=== PATIENT | male | born 1975 | race Caucasian/White ===

== ENCOUNTER 2021-07-02 15:51 | Emergency (ER) | payer OTHER, SELFPAY ==
--- NOTE | ~2021-07-02 | XR_ITS ---
EXAMINATION: XR forearm LT 2V EXAM DATE: 07/02/2021 16:44 INDICATION: fall, arm deformity. best obtainable. no movement. TECHNIQUE: Left forearm frontal projection obtained and reviewed (one image available). There is no prior study for comparison. FINDINGS: Acute closed posttraumatic comminuted fracture of the left radial distal metaphysis with d isplacement which would be better evaluated if a lateral projections were available. Multiple fractur e lines extending into the radiocarpal joint. There is overlying soft tissue swelling. IMPRESSION: Acute comminuted left distal radial metaphyseal intra-articular fracture. Reviewed, dictated and finalized at location B. 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
--- NOTE | ~2021-07-02 | CT_ITS ---
EXAMINATION: CT chest abdomen pelvis w con DATE: 07/02/2021 17:53 [employer]OP[employer] INDICATION: Status post fall from roof. Back pain. TECHNIQUE: Computed tomography (CT) of the chest, abdomen, and pelvis was performed with 100 cc Omnip aque 350 intravenous contrast. The dose-length product was 1448.07 mGy-cm. Automated exposure control and iterative reconstruction technique were employed. COMPARISON: None FINDINGS: CHEST CT: There are a few calcified granulomas in the lung parenchyma. There are a few scattered 2-3 mm nodules in the upper lobes. There is a 6 mm right upper lobe nodule, image 40, not clearly calcified. No end obronchial lesions. There is dependent atelectasis. No pneumothorax. Mild mediastinal lymphadenopathy , likely reactive No significant pleural or pericardial effusion. Heart size is normal. ABDOMEN/PELVIS CT: There are small low-density lesions throughout the liver, most likely benign cysts. The spleen, pancr eas, adrenal glands and kidneys are unremarkable. Gallbladder is present. No retroperitoneal lymphade nopathy. Normal appendix. Mild bladder wall thickening which may be due to underdistention or cystiti s. No free air or free fluid. There is an acute superior endplate compression fracture of L2 with richie roximately 15% loss of vertebral body height anteriorly. There is mild osteoarthritis of the hips. No acute pelvic fracture. IMPRESSION: 1. Acute superior endplate compression fracture of L2 with approximately 50% loss of vertebral body h eight. 2: Bilateral pulmonary nodules, largest noncalcified nodule measuring 6 mm in the right upper lobe, l ikely benign. Follow-up CT chest in 6 months recommended. 3: Mild mediastinal lymphadenopathy, likely reactive. 4: Mild bladder wall thickening which may relate to underdistention or cystitis. Reviewed, dictated and finalized at location A. [employer]EL[employer] IMPRESSION: 1. Acute superior endplate compression fracture of L2 with approximately 50% lo ss of vertebral body height. 2: Bilateral pulmonary nodules, largest noncalcified nodule measuring 6 mm in t he right upper lobe, likely benign. Follow-up CT chest in 6 months recommended. 3: Mild mediastinal lymphadenopathy, likely reactive. 4: Mild bladder wall thickening which may relate to underdistention or cystitis .
[2021-07-02 16:10] VITALS: BP 165/107; PULSE 60; RESP 16; TEMP 36.4; O2SAT 98
--- NOTE | 2021-07-02 16:18 | ED.FALL ---
HPI - Fall General Chief Complaint: Extremity Injury, Upper Stated Complaint: arm injury Time Seen by Provider: 07/02/21 16:18 Source: patient and family Mode of arrival: ambulatory Limitations: no limitations History of Present Illness HPI Narrative: 45-year-old man comes in today complaining of left wrist pain and deformity as well as low back pain after he fell 13 ft from a roof just prior to coming to the ER. He was on a metal roof and it started raining and he slipped. Patient states he did not strike his head and denies neck pain, loss consciousness, vomiting, numbness, weakness, chest or abdominal pain, or pelvic pain. complaint: fall Onset (ago): minute(s) (20) Fall from: from height (distance) ( 13 ft) Place fall occurred: work Loss of consciousness: none Length of LOC: second(s) Prolonged down time: no Symptoms prior to fall: none Context: tripped/slipped Location of injury: back Location of injury - extremities: Left: forearm Severity: severe Quality: sharp and aching Related Data Home Medications Medication Instructions Recorded Confirmed No Home Medications 07/02/21 07/02/21 Allergies Allergy/AdvReac Type Severity Reaction Status Date / Time No Known Allergies Allergy Verified 07/02/21 17:39 Review of Systems Review of Systems: All systems reviewed & are unremarkable except as noted in HPI and below Constitutional: Constitutional: Denies chills and Denies fever(s) Eyes: Eyes: Denies change in vision ENT: Denies nasal congestion and Denies sore throat Cardiovascular: Cardiovascular: Denies chest pain and Denies radiating jaw, neck or arm pain Respiratory: Respiratory: Denies chest congestion, Denies cough and Denies dyspnea Gastrointestinal: Gastrointestinal: Denies abdominal pain, Denies nausea and Denies vomiting Genitourinary: Genitourinary: Denies hematuria Musculoskeletal: Musculoskeletal: Reports as per HPI, Reports back pain and Reports arthralgias Integumentary/Breasts: Skin/Breast: Denies pruritus, Denies erythema and Denies rash Neurologic: Denies vertigo, Denies dizziness, Denies syncope, Denies numbness and Denies weakness Allergic/Immunologic: Allergic/Immunologic: Denies lip swelling and Denies throat swelling [facility] Surgical History Surgical History (Updated 07/02/21 @ 17:45 by Lucas Can MD) History of tonsillectomy Social History Social History (Updated 07/02/21 @ 17:46 by Lucas Can MD) Smoking status: Never smoker Substance use: never Living arrangements: with family Exam Const: General: healthy appearing and alert Orientation/consciousness: patient oriented x3 Limitations: no limitations Other: moderate to severe acute distress. HENMT: Head: normal to inspection Ears: external ears normal and EAC's normal General nose exam: Normal nares present Mouth: Yes moist mucous membranes Throat: posterior oropharynx normal Eyes: Conjunctivae: conjunctivae normal Pupils: Equal, round and reactive pupils present EOM: EOMs intact bilaterally Resp: Effort & Inspection: normal respiratory effort and not labored Auscultation: clear to auscultation bilaterally, no rales, no rhonchi and no wheezes Cardio: Rate: regular rate Rhythm: regular rhythm Heart sounds: no murmurs GI: GI Palp: Yes Soft to palpation, No Tenderness to palpation present (GI) and No Guarding due to palpation present (GI) Back/Spine/Pelvis: Other: Tenderness at the lumbar spine midline. There is no contusions, swelling, abnormal contour, or step-off. Skin: General skin exam: normal color, no jaundice and no pallor Rashes: no rashes Neuro: General: patient oriented x3, moves all extremities, no focal motor deficits and CN's II-XI intact bilaterally Speech: normal speech Gait exam (Neuro): Normal gait present Other: Distal neurovascular exam is intact in the lower extremities and left upper extremity Extrem: Other: Deformed left wrist with an abrasion o
[2021-07-02] MEDS: HYDROmorphone HCL INJ (*CRX) 2 MG/ML VIAL 0.5 MG IV PUSH ×4 (16:32→19:25)
[2021-07-02] MEDS: ONDANSETRON INJ 4 MG/2 ML VIAL IV PUSH (16:33)
[2021-07-02 16:37] LABS: Basophils Absolute Auto 0.03 K/mm3 (0.00-0.10); Basophils Percent Auto 0.2 % (0.0-1.0); Eosinophils Absolute Auto 0.06 K/mm3 (0.02-0.50); Eosinophils Percent Auto 0.4 % (1.0-6.0); Hemoglobin 14.4 g/dL (14.0-18.0); Immature Granulocyte Absolute 0.16 K/mm3 (0.00-0.00); Immature Granulocyte Percent A 1.2 % (0.0-0.0); Lymphocytes Percent Auto 24.2 % (18.0-42.0); Mean Corpuscular HGB Conc 34.3 g/dL (32.0-36.0); Mean Corpuscular Hemoglobin 29.8 pg (27.0-31.0); Mean Platelet Volume 9.5 fl (8.7-11.0); Monocytes Absolute Auto 1.05 K/mm3 (0.10-0.90); Monocytes Percent Auto 7.7 % (2.0-11.0); Neutrophils Percent Auto 66.3 % (50.0-70.0); Platelet Count Result 317 K/mm3 (150-420); Red Blood Count 4.83 M/mm3 (4.70-6.10); Red Cell Distribution Width 12.9 % (11.6-14.4); White Blood Count 13.6 K/mm3 (4.8-10.8)
[2021-07-02] MEDS: SODIUM CHLORIDE 0.9% IV 1,000 ML 999 ML IV CONT (16:55)
[2021-07-02 16:59] LABS: Alanine Aminotransferase 32 U/L (16-63); Albumin Level 3.4 g/dL (3.4-5.0); Alkaline Phosphatase 92 U/L (46-116); Anion Gap 16 mmol/L (8-16); Aspartate Amino Transferase 42 U/L (15-37); Bilirubin,Total 0.6 mg/dL (0.00-1.00); Blood Urea Nitrogen 25 mg/dL (7-18); Calcium 8.5 mg/dL (8.5-10.1); Carbon Dioxide 22 mmol/L (21-32); Chloride 102 mmol/L (98-108); Creatine Kinase 866 U/L (39-308); Estimated Glomerular Filt Rate 50; Glucose 164 mg/dL (70-99); Lipase 222 U/L (73-393); Osmolality Calculated 298 mOsm/kg (285-295); Potassium 3.4 mmol/L (3.5-5.1); Sodium 140 mmol/L (136-145); Total Protein 7.2 g/dL (6.4-8.2)
[2021-07-02 17:22] VITALS: BP 178/102; PULSE 74; RESP 16; O2SAT 97
[2021-07-02 18:00] LABS: Appearance Urine Clear (Clear); Bilirubin Urine Negative (Negative); Color Urine Yellow (Yellow); Glucose Urine UA Negative (Negative); Ketones Urine Trace (Negative); Leukocyte Esterase Ur Negative (Negative); Nitrate Urine Negative (Negative); Protein Urine 1+ (Negative); Specific Grav Ur >= 1.030 (1.010-1.020); Urobilinogen Urine 0.2 mg/dL (0.2-1.0)
--- NOTE | 2021-07-02 18:05 | PC.NURSE ---
RN swabbed pt for COVID rapid test and taken to lab at 1602.
[2021-07-02 18:20] VITALS: BP 166/100; PULSE 80; RESP 18; TEMP 36.7; O2SAT 96
[2021-07-02 18:40] LABS: SARS-CoV-2 Ag Negative (Negative)
[2021-07-02 18:41] LABS: Add Urine Microscopic? YES; Bacteria Urine Trace /hpf; Blood Urine Trace-Intact (Negative); Mucus Urine Moderate /lpf; RBC Urine 0-2 /hpf (0-2); Squamous Epithelial Cell Urine Rare /hpf (Few)
--- NOTE | 2021-07-02 18:45 | PC.NURSE ---
Pt informed RN that he was having increased numbness and decreased movement in his left middle and ring fingers.
[2021-07-02 19:00] VITALS: BP 158/95; PULSE 77; RESP 18; O2SAT 94
[2021-07-02 19:30] VITALS: BP 158/95; PULSE 78; RESP 18; TEMP 36.7; O2SAT 94
== END 2021-07-02 19:45 | disposition short-term general hospital (02) ==
PROVIDERS: Emergency Provider Emergency Medicine
DX: S52.502A Unspecified fracture of the lower end of left radius, initial encounter for closed fracture (principal); S32.020A Wedge compression fracture of second lumbar vertebra, initial encounter for closed fracture; W13.2XXA Fall from, out of or through roof, initial encounter; Z20.822 Contact with and (suspected) exposure to COVID-19
CPT/HCPCS: 29125; 36415; 71260; 73090; 74177; 80053; 81001; 82550; 83690; 85025; 87426; 96361; 96365; 96375; 96376; 99285; C9803; J0690; J1170; J2405; J7030; Q9967

== ENCOUNTER 2021-09-09 14:03 | Outpatient (RCR) | payer MEDICAID, OTHER, SELFPAY ==
--- NOTE | 2021-09-09 15:11 | OTOPEVAL ---
Thank you for referring River Islas to [facility].? The patient is scheduled to be seen for therapy? ____x/week for ___ weeks. Please review, sign, date and return this plan of care CAYLA. I agree with and certify that the following plan of care is medically necessary. Referring Physician Date Admitting Provider: Attending Provider: MIKE RODRIGUEZ Referring Provider: RenzoOT Outpatient Evaluation Start: 09/09/21 10:23 Freq: Status: Active Protocol: Document 09/09/21 14:04 [facility] [place]Rec: 09/09/21 15:11 [facility] [id number] Therapy Assessment Status Assessment Status Assessment Status Evaluation Evaluation Information Problem Diagnosis decreased L wrist ROM Onset 07/02/21 Cause L fracture of distal radius Subjective Information Patient was seen by his doctor Query Text:As Reported By Patient/ last Thursday and gave him a 10 Family # weight limit and recommended therapy for ROM of his L wrist. Patient reports that he fell off of a roof on and had surgery on 07/17/21 . 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 Patient reports that he is right hand dominant but does do a lot of things with his left hand as well. Patient is unable to use his L hand to grasp things and operate knobs, specifically pushing down on a soap bottle, opening a soda can, and carrying items. QuickDASH: 54.5% Prior Level of Function Activity Level (Last 3 Months) Occupation construction Hand Dominance Right Activity of Daily Living Ability Independent Indoor/Home Mobility Independent Community Mobility Independent Stairs Ability Independent Functional Cognition (Planning, Shopping Independent , Taking Medications) Cooking Yes Cleaning Yes Laundry Yes Shopping Yes Driving Yes Pain Asses
--- NOTE | 2021-10-07 09:05 | OTOPEVAL ---
Thank you for referring River Islas to [facility].? The patient is scheduled to be seen for therapy? ____x/week for ___ weeks. Please review, sign, date and return this plan of care CAYLA. I agree with and certify that the following plan of care is medically necessary. Referring Physician Date Admitting Provider: Attending Provider: MIKE RODRIGUEZ Referring Provider: RenzoOT Outpatient Evaluation Start: 09/09/21 10:23 Freq: Status: Active Protocol: Document 10/07/21 08:00 [facility] [place] (Rec: 10/07/21 09:04 [facility] [place] [id number]) Therapy Assessment Status Assessment Status Assessment Status Discharge Evaluation Information Problem Subjective Information Patient reports that he is Query Text:As Reported By Patient/ able to use his L hand to do Family anything he needs to and is back to working. 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 Patient does state that his lower back has been bothering him. Pain Assessment Timing of Pain Assessment Timing of Pain Assessment Re-assessment Self Report Self Report Pain Level 0 Pain Score Pain Score 0: Self Report Upper Extremity Range of Motion Elbow/Forearm Range of Motion Left Forearm Supination - Active 35 Wrist Range of Motion Left Wrist Flexion - Active 50 Wrist Extension - Active 28 Wrist Radial Deviation - Active 15 Wrist Ulnar Deviation - Active 15 Upper Extremity Muscle Strength Testing Wrist Strength Left Wrist Flexion Strength 5 Normal Wrist Extension Strength 5 Normal Hand Sheriff Officer/Pinch Strength Assessment Hand Left Sheriff Officer Strength (lbs) 40 Extremity Circumference Assessment Circumference Assessment Circumference Comments L wrist: 20.5 cm General Exercise General Exercises Side Left Exercise Description wrist maze x 3 min Query Text:Record Sets, Reps, 4# resisting L wrist flex/ext Resistance, and Position and rad/ulnar deviation, 25 reps x 2 sets weighted bar resisting L supination/pronation, 25 reps x 2 sets hand gripper at 4th position, 25 reps x 2 sets green therabar resisting research scholar with supination, research scholar with pronation, research scholar with wrist extension and research scholar with flexion, 25 resp x 2 sets each Manual Therapy Manual Therapy
== END 2021-10-07 09:33 | disposition home or self-care (01) ==
LOC: CHSOT 14:03
DX: S52.572D Other intraarticular fracture of lower end of left radius, subsequent encounter for closed fracture with routine healing (principal)
CPT/HCPCS: 97110; 97140; 97165

== ENCOUNTER 2021-10-08 08:01 | Outpatient (RCR) | payer OTHER, SELFPAY ==
--- NOTE | 2021-10-08 08:55 | PTOPEVAL ---
Thank you for referring River Islas to [facility].? The patient is scheduled to be seen for therapy? __2__x/week for 10 visits. Please review, sign, date and return this plan of care CAYLA. I agree with and certify that the following plan of care is medically necessary. Referring Physician Date Admitting Provider: Attending Provider: ALISON BOO Referring Provider: *PT Outpatient Evaluation Start: 10/08/21 08:04 Freq: Status: Active Protocol: Document 10/08/21 08:05 [facility] (Rec: 10/08/21 08:53 [facility] [id number]) Therapy Assessment Status Assessment Status Assessment Status Evaluation Evaluation Information Problem Diagnosis L2 compression fx, back pain Onset 07/02/21 Subjective Information Pt. reports that he fell off a Query Text:As Reported By Patient/ roof on 07/02/21. He report Family that he slipped on water. He states that his current pain is located on the right side. He notices pain when he is on his feet and lifting. He reports that he can be pain free with rest. He reports that he sleeps about 3 hours at night before pain can start and he has to get out of bed. He reports that he has been working, but is doing more small work and avoiding any heavy lifting. He reports that his goal is to reduce his back pain. Prior Level of Function Comments Additional Prior Level of Function Prior to the fall pt. 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 Pain Assessment Timing of Pain Assessment Timing of Pain Assessment Pre-Treatment Pain Scale Pain Scale Used Numeric (1 - 10) Self Report Pain Assessment Right Lower Back Reported Pain Level 2 Pain Description Aching Pain Frequency Intermittent Lowest Pain Intensity 0 Greatest Pain Intensity 6 Pain Score Pain Score 2: Self Report Interventions Used Interventions Used By Clinicians Activity or ADL's,Exercise Cervical and Lumbar ROM Lumbar ROM Lumbar Flexion Active Mid Chiang Query Text:Hands to: Lumbar Extension (0-40) 20 Query Text:Active in Degrees Lumbar Lateral Flexion Right (0-40) 30 Query Text:Active in Degrees
== END 2021-11-08 14:56 | disposition home or self-care (01) ==
LOC: CHSPT 08:01
DX: S32.020D Wedge compression fracture of second lumbar vertebra, subsequent encounter for fracture with routine healing (principal)
CPT/HCPCS: 97014; 97110; 97140; 97161; G0283

== ENCOUNTER 2021-12-05 07:33 | Outpatient (RCR) | payer OTHER, SELFPAY ==
[2021-12-05 07:05] VITALS: BP_SYST 90
--- NOTE | 2021-12-05 08:21 | PTOPEVAL ---
Thank you for referring River Islas to [facility].? The patient is scheduled to be seen for therapy? ____x/week for ___ weeks. Please review, sign, date and return this plan of care CAYLA. I agree with and certify that the following plan of care is medically necessary. Referring Physician Date Admitting Provider: Attending Provider: CIPRIANO LEACH Referring Provider: *PT Outpatient Evaluation Start: 12/05/21 07:02 Freq: Status: Active Protocol: Document 12/05/21 07:05 [facility] (Rec: 12/05/21 08:16 [facility] [id number]) Therapy Assessment Status Assessment Status Assessment Status Evaluation Evaluation Information Problem Diagnosis L shoulder pain, s/p distal radius fracture w/ ORIF Onset 12/02/21 Additional Evaluation Detail quick dash = 38% functionally declined Subjective Information patient reports he injured his Query Text:As Reported By Patient/ L wrist back in june of last year when he fell off a roof. he reports he had an ORIF surgery on the L wrist and had several visits of OT for the wrist following surgery. he reports he also had issues with the lower back after the fall (received PT for this), and he is now having L shoulder issues that he attributes to not using since his fall. 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 however, he reports the pain is more intense and more frequent since his fall injury . he reports he is getting a bit better from being back to work. he reports in combination with his new bouts of shoulder pain, he has L wrist tightness again as well. he reports he feels the shoulder is weak and tight. he reports he has a smaller mm in the L arm compared to the R arm. he reports increased pain in the L wist and shoulder with lifting arm/
== END 2021-12-26 08:13 | disposition home or self-care (01) ==
LOC: CHSPT 07:33
PROVIDERS: PCP Family Medicine
DX: S52.572D Other intraarticular fracture of lower end of left radius, subsequent encounter for closed fracture with routine healing (principal)
CPT/HCPCS: 97014; 97110; 97161; G0283

== ENCOUNTER 2023-08-10 22:25 | Emergency (ER) | payer OTHER, SELFPAY ==
[2023-08-10] VITALS (7 sets, daily range): BP systolic 113–141; BP diastolic 77–98; PULSE 64–81; RESP 13–20; TEMP 36.8; O2SAT 94–98
--- NOTE | ~2023-08-10 | XR_ITS ---
EXAMINATION: XR chest 2V DATE: 08/10/2023 22:51 INDICATION: Left chest pain. TECHNIQUE: Frontal and lateral views of the chest were obtained. COMPARISON: Chest CT 07/02/2021 FINDINGS: Calcified pulmonary nodules are consistent with old granulomatous disease. No pleural effus ion or pneumothorax. The heart size is normal. IMPRESSION: 1. No acute cardiopulmonary disease. Reviewed, dictated and finalized at location E. 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
--- NOTE | 2023-08-10 22:28 | ECG_ITS ---
Measurements Intervals Downs Rate: 68 P: 71 IN: 161 QRS: 43 QRSD: 94 T: 74 QT: 387 QTc: 413 Interpretive Statements SINUS RHYTHM POSSIBLE LEFT ATRIAL ENLARGEMENT INCOMPLETE RIGHT BUNDLE BRANCH BLOCK BORDERLINE ST-T WAVE ABNORMALITY- ANTEROLAT/HIGH LAT LEADS BORDERLINE ECG NO PREVIOUS ECG AVAILABLE FOR COMPARISON Electronically Signed On 08-11-2023 6:57:05 [employer]TL APPLICATION DEVELOPER by Horace Edwards D.O.
[2023-08-10] MEDS: ASPIRIN 81 MG CHEWABLE TABLET 324 MG PO (22:39)
[2023-08-10] MEDS: NITROGLYCERIN SL 0.4 MG TABLET SUBLINGUAL ×2 (22:40→23:15)
--- NOTE | 2023-08-10 22:40 | ED.CHESTPAIN ---
HPI - Chest Pain General Chief Complaint: Chest Pain Stated Complaint: chest pain Time Seen by Provider: 08/10/23 22:27 Source: patient Mode of arrival: ambulatory Limitations: no limitations History of Present Illness HPI narrative: 47 year old male presents to the Emergency Department complaining of substernal chest pain. Onset 4 days ago. Pain intermittent. Denies radiation. States has some right arm numbness and headache which come intermittently. States he saw doctor in 2012 and was given some bad new [COPD, lung tumor, some blockage in neck vessel], so I never went back. States I don't go see doctors because all they do is give you bad news. Family positive for CVD. Smoker. MD complaint: chest pain Onset (ago): day(s) (4) Timing of current episode: episodic Pain location: substernal Pain radiation: none Quality: sharp (stabbing) Relieving factors: nothing Exacerbating factors: nothing Treatment prior to arrival: none Risk Factors Coronary artery disease risk factors: smoking history and family history of CAD before age 50 Related Data Home Medications Medication Instructions Recorded Confirmed No Home Medications 07/02/21 08/10/23 Allergies Allergy/AdvReac Type Severity Reaction Status Date / Time No Known Allergies Allergy Verified 07/02/21 17:39 Review of Systems Review of Systems: All systems reviewed & are unremarkable except as noted in HPI and below Constitutional: Constitutional: Reports as per HPI, Denies chills and Denies fever(s) Eyes: Eyes: Reports as per HPI ENT: Reports system reviewed and no additional complaints, except as documented Cardiovascular: Cardiovascular: Reports as per HPI and Reports chest pain Respiratory: Respiratory: Reports as per HPI and Reports dyspnea Gastrointestinal: Gastrointestinal: Reports as per HPI, Denies diarrhea, Denies nausea and Denies vomiting Musculoskeletal: Musculoskeletal: Reports no additional musculoskeletal complaints Integumentary/Breasts: Skin/Breast: Reports system reviewed and no additional complaints, except as docu Neurologic: Reports headache(s) and Reports numbness (right arm) [facility] Surgical History Surgical History History of tonsillectomy Social History Social History Smoking status: Never smoker Substance use: never Living arrangements: with family Exam Const: General: healthy appearing and no acute distress Nutritional Appearance: well nourished Orientation/consciousness: patient oriented x3 Limitations: no limitations HENMT: Head: normal to inspection Ears: external ears normal Face/Nose/Sinus: Normal external nose present Face and sinus: normal facial exam Mouth: Yes Normal oral and palatal mucosa present Eyes: Conjunctivae: conjunctivae normal Pupils: Equal, round and reactive pupils present EOM: EOMs intact bilaterally Direct Ophthalmoscopy: no photophobia Neck: Neck: normal visual inspection Chest: Chest palpation & inspection: normal inspection of the chest and no tenderness Resp: Effort & Inspection: normal respiratory effort Auscultation: clear to auscultation bilaterally Cardio: Rate: regular rate Rhythm: regular rhythm Heart sounds: no murmurs GI: Inspection: non-distended GI Palp: Yes Soft to palpation and No Tenderness to palpation present (GI) Auscultation: normal bowel sounds Back/Spine/Pelvis: Back: no CVA tenderness Skin: General skin exam: normal color Rashes: no rashes Wounds: no wounds Neuro: General: patient oriented x3 and moves all extremities Cranial nerves: Yes Nystagmus not present Speech: normal speech Gait exam (Neuro): Normal gait present Other: grossly intact Extrem: General: normal to inspection and no edema Psych: Mental Status: mental status grossly normal Affect: normal affect Course Course Emergency Course: 47 y/o male pres
[2023-08-10 22:49] LABS: Basophils Absolute Auto 0.02 K/mm3 (0.00-0.10); Basophils Percent Auto 0.2 % (0.0-1.0); Hematocrit 45.5 % (40.0-54.0); Hemoglobin 15.2 g/dL (14.0-18.0); Immature Granulocyte Absolute 0.03 K/mm3 (0.00-0.00); Immature Granulocyte Percent A 0.3 % (0.0-0.0); Lymphocytes Absolute Auto 3.35 K/mm3 (1.10-4.50); Lymphocytes Percent Auto 32.7 % (18.0-42.0); Mean Corpuscular HGB Conc 33.4 g/dL (32.0-36.0); Mean Corpuscular Volume 89.9 fL (78.0-102.0); Mean Platelet Volume 9.4 fl (8.7-11.0); Monocytes Absolute Auto 0.83 K/mm3 (0.10-0.90); Monocytes Percent Auto 8.1 % (2.0-11.0); Neutrophils Absolute Auto 5.8 K/mm3 (1.7-7.2); Neutrophils Percent Auto 56.7 % (50.0-70.0); Platelet Count Result 271 K/mm3 (150-420); Red Blood Count 5.06 M/mm3 (4.70-6.10); Red Cell Distribution Width 13.3 % (11.6-14.4); White Blood Count 10.3 K/mm3 (4.8-10.8)
[2023-08-10 23:00] LABS: D Dimer 0.35 mg/L (0.19-0.50)
[2023-08-10 23:07] LABS: Alanine Aminotransferase 29 U/L (16-63); Alkaline Phosphatase 75 U/L (46-116); Anion Gap 7 mmol/L (8-16); Aspartate Amino Transferase 21 U/L (15-37); Bilirubin,Total 0.4 mg/dL (0.00-1.00); Blood Urea Nitrogen 22 mg/dL (7-18); Calcium 8.3 mg/dL (8.5-10.1); Carbon Dioxide 29 mmol/L (21-32); Chloride 103 mmol/L (98-108); Estimated CRCL calculation 79 ml/min; Estimated Glomerular Filt Rate > 60; Glucose 138 mg/dL (70-99); Osmolality Calculated 293 mOsm/kg (285-295); Potassium 3.9 mmol/L (3.5-5.1); Sodium 139 mmol/L (136-145); Total Protein 7.3 g/dL (6.4-8.2)
[2023-08-10 23:09] LABS: Troponin I 634.3 ng/L (0.00-60.4)
[2023-08-10] MEDS: MORPHINE SULFATE (*CRX) 4 MG/ML INJ IV PUSH (23:33)
[2023-08-10] MEDS: HEPARIN SODIUM 5,000 UNITS/ML VIAL 6000 UNITS IV PUSH (23:42)
[2023-08-10 23:44] LABS: INR 0.9; Partial Thromboplastin Time 26.5 SEC (23.90-30.70); Prothrombin Time 9.9 Seconds (9.50-12.10)
[2023-08-10] MEDS: HEPARIN SOD/D5W 100 UNITS/ML 25,000 UNITS/250 ML BAG 10 UNITS IV CONT (23:48)
[2023-08-11] VITALS (10 sets, daily range): BP systolic 108–128; BP diastolic 63–90; PULSE 56–74; RESP 10–18; TEMP 36.8; O2SAT 94–98
--- NOTE | 2023-08-11 00:53 | PC.NURSE ---
Pt resting, VSS, continuing to monitor. NSR on monitor, paperwork signed for transfer to [facility].
--- NOTE | 2023-08-11 02:00 | PC.NURSE ---
Bed received at [facility], report called to RN and [facility] paged for pt transfer. VSS, monitor shows Sbrady. Pt sleeping, RR even and nonlabored.
[2023-08-11 02:06] LABS: NT Pro B Type Natriuretic Pept 767 pg/mL (0-125)
--- NOTE | 2023-08-11 02:21 | PC.NURSE ---
Report to MERCEDES Thacker for transfer. Pt loaded s difficulty, VSS.
== END 2023-08-11 02:26 | disposition short-term general hospital (02) ==
PROVIDERS: Emergency Provider Emergency Medicine
DX: I21.4 Non-ST elevation (NSTEMI) myocardial infarction (principal)
CPT/HCPCS: 36415; 71046; 80053; 83880; 84484; 85025; 85380; 85610; 85730; 93005; 96365; 96375; 99285; A9270; J1644; J2270